=== PATIENT | female | born 1955 | race Caucasian/White ===

== ENCOUNTER 2019-12-17 08:56 | Outpatient (CLI) | payer MEDICARE, OTHER, SELFPAY ==
--- NOTE | ~2019-12-17 | MM_ITS ---
EXAMINATION: MM screening miles BI w cirilo HISTORY: Screening TECHNIQUE: Craniocaudal and mediolateral oblique 3-D tomosynthesis images were obtained and synthetic 2-D images were generated. CAD analysis was submitted and interpreted. COMPARISON: Comparison to multiple prior studies sequentially, with oldest reviewed study dated 11/22. BREAST PARENCHYMAL COMPOSITION: There are scattered areas of fibroglandular density. FINDINGS: There is no evidence of suspicious mass, calcification, or architectural distortion to sugg est malignancy in either breast. There has been no suspicious interval change. IMPRESSION: 1. No mammographic evidence of malignancy. 2. Recommend routine screening mammography in one year. BI-RADS Category 1: Negative Reviewed, dictated and finalized at location A.
== END 2019-12-17 08:57 | disposition home or self-care (01) ==
LOC: ANHIMG 09:07
PROVIDERS: Visit Provider Obstetrics & Gynecology Gynecology
DX: Z12.31 Encounter for screening mammogram for malignant neoplasm of breast (principal)
CPT/HCPCS: 77063; 77067

== ENCOUNTER 2020-12-22 08:32 | Outpatient (CLI) | payer MEDICARE, SELFPAY ==
--- NOTE | ~2020-12-22 | MM_ITS ---
EXAMINATION: MM screening miles BI w cirilo HISTORY: Screening TECHNIQUE: Craniocaudal and mediolateral oblique 3-D tomosynthesis images were obtained and synthetic 2-D images were generated. CAD analysis was submitted and interpreted. COMPARISON: Comparison to multiple prior studies sequentially, with oldest reviewed study dated 11/24. BREAST PARENCHYMAL COMPOSITION: There are scattered areas of fibroglandular density. FINDINGS: There is no evidence of suspicious mass, calcification, or architectural distortion to sugg est malignancy in either breast. There has been no suspicious interval change. IMPRESSION: 1. No mammographic evidence of malignancy. 2. Recommend routine screening mammography in one year. BI-RADS Category 1: Negative Reviewed, dictated and finalized at location A.
== END 2020-12-22 08:33 | disposition home or self-care (01) ==
LOC: ANHIMG 08:40
PROVIDERS: Visit Provider Obstetrics & Gynecology Gynecology
DX: Z12.31 Encounter for screening mammogram for malignant neoplasm of breast (principal)
CPT/HCPCS: 77063; 77067

== ENCOUNTER 2021-12-28 09:30 | Outpatient (CLI) | payer MEDICARE, SELFPAY ==
--- NOTE | ~2021-12-28 | MM_ITS ---
EXAMINATION: MM screening [facility] BI w cirilo HISTORY: Screening mammogram TECHNIQUE: Craniocaudal and mediolateral oblique 3-D tomosynthesis images were obtained and synthetic 2-D images were generated. CAD analysis was submitted and interpreted. COMPARISON: 12/22/2020, 12/17/2019, 12/11/2018 BREAST PARENCHYMAL COMPOSITION: There are scattered areas of fibroglandular density. FINDINGS: There is no suspicious mass, calcification, or architectural distortion to suggest malignan cy in either breast. There has been no suspicious interval change. IMPRESSION: 1. No mammographic evidence of malignancy. 2. Recommend routine screening mammography in one year. BI-RADS Category 1: Negative Reviewed, dictated and finalized at location A.
== END 2021-12-28 09:31 | disposition home or self-care (01) ==
PROVIDERS: Visit Provider Obstetrics & Gynecology Gynecology
DX: Z12.31 Encounter for screening mammogram for malignant neoplasm of breast (principal)
CPT/HCPCS: 77063; 77067

== ENCOUNTER 2023-01-03 09:43 | Outpatient (CLI) | payer MEDICARE, SELFPAY ==
--- NOTE | ~2023-01-03 | MM_ITS ---
EXAMINATION: MM screening miles BI w cirilo HISTORY: Screening mammogram TECHNIQUE: Craniocaudal and mediolateral oblique 3-D tomosynthesis images were obtained and synthetic 2-D images were generated. CAD analysis was submitted and interpreted. COMPARISON: 12/28/2021, 12/22/2020, 12/17/2019 bilateral screening mammogram examinations BREAST PARENCHYMAL COMPOSITION: The breasts are almost entirely fatty. FINDINGS: There is no evidence of suspicious mass, calcification, or architectural distortion to sugg est malignancy in either breast. There has been no suspicious interval change. IMPRESSION: 1. No mammographic evidence of malignancy. 2. Recommend routine screening mammography in one year. BI-RADS Category 1: Negative Reviewed, dictated and finalized at location A.
== END 2023-01-03 09:44 | disposition home or self-care (01) ==
PROVIDERS: Visit Provider Obstetrics & Gynecology Gynecology
DX: Z12.31 Encounter for screening mammogram for malignant neoplasm of breast (principal)
CPT/HCPCS: 77063; 77067

== ENCOUNTER 2024-01-09 09:53 | Outpatient (CLI) | payer MEDICARE, SELFPAY ==
--- NOTE | ~2024-01-09 | MM_ITS ---
EXAMINATION: MM screening miles BI w cirilo HISTORY: Screening TECHNIQUE: Craniocaudal and mediolateral oblique 3-D tomosynthesis images were obtained and synthetic 2-D images were generated. CAD analysis was submitted and interpreted. COMPARISON: Comparison to multiple prior studies sequentially, with oldest reviewed study dated 12/07. BREAST PARENCHYMAL COMPOSITION: Not Dense. The breasts are almost entirely fatty. FINDINGS: There is no evidence of suspicious mass, calcification, or architectural distortion to sugg est malignancy in either breast. There has been no suspicious interval change. IMPRESSION: 1. No mammographic evidence of malignancy. 2. Recommend routine screening mammography in one year. BI-RADS Category 1: Negative Reviewed, dictated and finalized at location B.
== END 2024-01-09 09:54 | disposition home or self-care (01) ==
LOC: ANHIMG 09:54
PROVIDERS: PCP Family Medicine; Visit Provider Obstetrics & Gynecology Gynecology
DX: Z12.31 Encounter for screening mammogram for malignant neoplasm of breast (principal)
CPT/HCPCS: 77063; 77067

== ENCOUNTER 2024-01-23 01:27 | Day surgery (SDC) | payer MEDICARE, SELFPAY ==
[2024-01-04 11:49] VITALS: BMI 31.2
--- NOTE | 2024-01-22 17:00 | WPDANESEPP ---
Anes - Eval Pre Procedure Procedure: Operation Date: 01/23/24 07:30 Proposed Procedures p Screening Colonoscopy - Juanjo Jarquin MD Date/Time: 01/22/24 17:00 Pre Op Diagnosis: neoplasm screening Patient Data Age: 68 Gender: F Height: 1.55 m Weight: 75 kg Allergies Allergy/AdvReac Type Severity Reaction Status Date / Time Sulfa (Sulfonamide Allergy Severe RASH Verified 01/04/24 11:28 Antibiotics) Home Medications Medication Instructions Recorded Confirmed Type [place] Shield .Route 11/21/23 History biotin 5,000 mcg chewable tablet 5,000 mcg PO DAILY 11/21/23 01/04/24 History calcium carbonate (Calcium 500) 1,200 mg PO DAILY 11/21/23 01/04/24 History cholecalciferol (vitamin D3) 1,250 1,250 mcg PO ONCE 11/21/23 01/04/24 History mcg (50,000 unit) capsule estradiol 10 mcg vaginal tablet 10 mcg vaginal 2XW 11/21/23 01/04/24 History ezetimibe 10 mg tablet 10 mg PO DAILY 11/21/23 History levothyroxine 50 mcg tablet 50 mcg PO DAILY 11/21/23 01/04/24 History cyclobenzaprine 5 mg tablet 5 mg PO PRN 11/22/23 01/04/24 History Patient hx anesthesia problems: none Family hx anesthesia problems: none Results Review: All pre-operative results and documents have been reviewed as part of the pre-operative evaluation. [facility] Past Medical History Medical History (Updated 01/22/24 @ 17:01 by Michele Gutierrez Jr., CRNA) Hearing loss Hypothyroidism Osteopenia Overweight (BMI 25.0-29.9) Sleep apnea Surgical History Surgical History History of knee replacement Family History Family History Father Hypertension Cerebrovascular accident Sibling Hypertension Social History Social History Smoking status: Never smoker Second hand tobacco smoke exposure: Yes Alcohol intake: current Drinks per week: 1 Substance use: never Substance use type: does not use Living arrangements: with family Occupation/Education: retired Gender identity (if verbalized by the patient): Female Sexual Orientation (if Verbalized by the Patient): Straight or Heterosexual Spiritual care concerns: No Exam Day of Procedure 01/22/24 17:00 Patient weight: overweight
[2024-01-23 06:21] VITALS: BP 141/81; PULSE 61; RESP 20; TEMP 35.8; O2SAT 99; BMI 23.8
[2024-01-23] MEDS: LACTATED RINGERS 1,000 ML 150 ML IV CONT (06:41)
--- NOTE | 2024-01-23 06:52 | P.PNAN_ITS ---
Anes - Initial Pre Proc Eval Procedure: Operation Date: 01/23/24 07:30 Proposed Procedures p Screening Colonoscopy - Juanjo Jarquin MD Date/Time: 01/23/24 06:52 Surgeon: Juanjo Jarquin MD Pre Op Diagnosis: neoplasm screening Patient Data Age: 68 Gender: F Height: 1.8 m Weight: 77.6 kg Last Vital Signs Temp 35.8 C L 01/23/24 06:21 Pulse 61 01/23/24 06:21 Resp 20 01/23/24 06:21 BP 141/81 H 01/23/24 06:21 Pulse Ox 99 01/23/24 06:21 O2 Del Method Room Air 01/23/24 06:21 Allergies Allergy/AdvReac Type Severity Reaction Status Date / Time Sulfa (Sulfonamide Allergy Severe RASH Verified 01/23/24 06:19 Antibiotics) Home Medications Medication Instructions Recorded Confirmed Type [place] Shield 1 tab-cap PO DAILY 11/21/23 01/23/24 History biotin 5,000 mcg chewable tablet 5,000 mcg PO DAILY 11/21/23 01/23/24 History calcium carbonate (Calcium 500) 1,200 mg PO DAILY 11/21/23 01/23/24 History cholecalciferol (vitamin D3) 1,250 1,250 mcg PO ONCE 11/21/23 01/23/24 History mcg (50,000 unit) capsule estradiol 10 mcg vaginal tablet 10 mcg vaginal 2XW 11/21/23 01/23/24 History levothyroxine 50 mcg tablet 50 mcg PO DAILY 11/21/23 01/23/24 History cyclobenzaprine 5 mg tablet 5 mg PO PRN 11/22/23 01/23/24 History Patient hx anesthesia problems: none Family hx anesthesia problems: none Results Review: All pre-operative results and documents have been reviewed as part of the pre- operative evaluation. [facility] Past Medical History Medical History Hearing loss Hypothyroidism Osteopenia Overweight (BMI 25.0-29.9) Sleep apnea Surgical History Surgical History History of knee replacement Family History Family History Father Hypertension Cerebrovascular accident Sibling Hypertension Social History Social History Smoking status: Never smoker Second hand tobacco smoke exposure: Yes Alcohol intake: current Drinks per week: 1 Substance use: never Substance use type: does not use Living arrangements: with family Occupation/Education: retired Gender identity (if verbalized by the patient): Female Sexual Orientation (if Verbalized by the Patient): Straight or Heterosexual Spiritual care concerns: No Anes - Eval Final PreProcedure Day of Procedure 01/23/24 06:52 Patient weight: normal Heart: regular rate and rhythm Lungs: clear to auscultation Airway: Mallampati scale class II Neurological: alert and oriented Last oral intake: >/= 8 hours ASA classification: III Emergent: no Anesthetic plan: proceed Anesthesia type and monitoring: general GIVS and standard monitoring Results Review: All pre-operative results and documents have been reviewed as part of the pre- operative evaluation. Informed Consent: The patient's anesthetic plan and its attendant risks and benefits were discussed with the patient/family/POA. Questions were solicited and answers provided to the satisfaction of the patient/family/POA.
--- NOTE | 2024-01-23 07:20 | PM.HPGS ---
History of Present Illness History of Present Illness Consent: Risks, benefits, and alternatives have been discussed and questions answered. Patient agrees to proceed with procedure. Chief complaint: neoplasm screening Narrative: Jyoti Stapleton is a 68 year old female here for screening colonoscopy Review of Systems Review of Systems: All systems reviewed & are unremarkable except as noted in HPI and below PMFSH Past Medical History Medical History (Updated 01/23/24 @ 07:20 by Juanjo Jarquin MD) Colon cancer screening Hearing loss Hypothyroidism Osteopenia Overweight (BMI 25.0-29.9) Sleep apnea Surgical History Surgical History History of knee replacement Family History Family History Father Hypertension Cerebrovascular accident Sibling Hypertension Social History Social History Smoking status: Never smoker Second hand tobacco smoke exposure: Yes Alcohol intake: current Drinks per week: 1 Substance use: never Substance use type: does not use Living arrangements: with family Occupation/Education: retired Gender identity (if verbalized by the patient): Female Sexual Orientation (if Verbalized by the Patient): Straight or Heterosexual Spiritual care concerns: No Meds Home Medications and Allergies Home Medications Medication Instructions Recorded Confirmed Type [place] Shield 1 tab-cap PO DAILY 11/21/23 01/23/24 History biotin 5,000 mcg chewable tablet 5,000 mcg PO DAILY 11/21/23 01/23/24 History calcium carbonate (Calcium 500) 1,200 mg PO DAILY 11/21/23 01/23/24 History cholecalciferol (vitamin D3) 1,250 1,250 mcg PO ONCE 11/21/23 01/23/24 History mcg (50,000 unit) capsule estradiol 10 mcg vaginal tablet 10 mcg vaginal 2XW 11/21/23 01/23/24 History levothyroxine 50 mcg tablet 50 mcg PO DAILY 11/21/23 01/23/24 History cyclobenzaprine 5 mg tablet 5 mg PO PRN 11/22/23 01/23/24 History Allergies Allergy/AdvReac Type Severity Reaction Status Date / Time Sulfa (Sulfonamide Allergy Severe RASH Verified 01/23/24 06:19 Antibiotics) Vital Signs Vital Signs - 24 hr 01/23/24 06:21 Temperature 96.5 F L Pulse Rate 61 Respiratory Rate 20 Blood Pressure 141/81 H Pulse Oximetry 99 Oxygen Delivery Room Air Exam Const: General: comfortable and no acute distress HENMT: Face/Nose/Sinus: Normal nares present Eyes: General: appearance normal, both eyes and all related structures Neck: Neck: no JVD Resp: Auscultation: clear to auscultation bilaterally Cardio: Rate: regular rate Rhythm: regular rhythm GI: Inspection: non-distended GI Palp: Yes Soft to palpation Skin: General skin exam: normal color Neuro: General: gait normal Speech: normal speech Extrem: General: normal to inspection Psych: Mental Status: mental status grossly normal Assessment and Plan Assessment and plan (1) Colon cancer screening: Code(s): Z12.11 - Encounter for screening for malignant neoplasm of colon Status: Acute Assessment and Plan: colonoscopy
[2024-01-23 07:43] VITALS: BP 98/57; PULSE 67; RESP 18; O2SAT 98
[2024-01-23 07:53] VITALS: BP 106/60; PULSE 63; RESP 18; O2SAT 99
[2024-01-23 08:03] VITALS: BP 122/61; PULSE 60; RESP 18; O2SAT 100
== END 2024-01-23 08:16 | disposition home or self-care (01) ==
PROVIDERS: PCP Family Medicine; Referring Provider Internal Medicine; Visit Provider Internal Medicine Gastroenterology
PROC: 0DJD8ZZ Inspection of Lower Intestinal Tract, Via Natural or Artificial Opening Endoscopic (ICD-10-PCS; CPT 45378; principal; 2024-01-23 07:30)
DX: Z12.11 Encounter for screening for malignant neoplasm of colon (principal); K64.8 Other hemorrhoids; K57.30 Diverticulosis of large intestine without perforation or abscess without bleeding; E03.9 Hypothyroidism, unspecified; M85.88 Other specified disorders of bone density and structure, other site; G47.30 Sleep apnea, unspecified; Z98.890 Other specified postprocedural states; Z82.49 Family history of ischemic heart disease and other diseases of the circulatory system
CPT/HCPCS: G0121; J2003; J2704; J7120

== ENCOUNTER 2024-02-01 08:12 | Outpatient (CLI) | payer MEDICARE, SELFPAY ==
[2024-02-01 18:48] LABS: Hematocrit 44.3 % (37.0-47.0); Hemoglobin 14.1 g/dL (12.0-15.0); Mean Corpuscular HGB Conc 31.8 g/dl (32-36); Mean Corpuscular Hemoglobin 31.2 pg (26-34); Mean Platelet Volume 10.4 fl (7.4-10.4); Platelet Count Result 181 k/mm3 (150-375); Red Blood Count 4.52 M/mm3 (4.2-5.4); Red Cell Distribution Width 12.5 % (11.5-14.5); White Blood Count 7.2 K/mm3 (4.5-10.0)
[2024-02-01 19:56] LABS: Vitamin D 25 Hydroxy 36.8 ng/mL
[2024-02-01 19:58] LABS: Alanine Aminotransferase 32 U/L (6-35); Albumin Level 4.5 g/dL (3.5-5.1); Alkaline Phosphatase 83 U/L (38-126); Anion Gap 9 mmol/L (4-12); Aspartate Amino Transferase 41 U/L (14-36); Bilirubin,Total 0.3 mg/dL (0.2-1.3); Blood Urea Nitrogen 14 mg/dL (7-17); Calcium 9.4 mg/dL (8.4-10.2); Carbon Dioxide 29 mmol/L (22-30); Chloride 101 mmol/L (98-107); Cholesterol 273 mg/dL (0-200); Estimated Glomerular Filt Rate > 60; Glucose 83 mg/dL (65-110); HDL Direct 58 mg/dL; Potassium 4.5 mmol/L (3.4-5.0); Sodium 139 mmol/L (137-145); Triglycerides 133 mg/dL (<150)
[2024-02-01 20:09] LABS: LDL Cholesterol Direct 160 mg/dL
== END 2024-02-01 08:13 | disposition home or self-care (01) ==
PROVIDERS: PCP Family Medicine; Visit Provider Family Medicine
DX: E03.9 Hypothyroidism, unspecified (principal); M85.80 Other specified disorders of bone density and structure, unspecified site; E78.00 Pure hypercholesterolemia, unspecified; G47.30 Sleep apnea, unspecified
CPT/HCPCS: 36415; 80053; 80061; 82306; 84443; 85027

== ENCOUNTER 2024-09-23 07:51 | Outpatient (CLI) | payer MEDICARE, SELFPAY ==
--- OUTSIDE RECORDS SUMMARY | 2024-09-23 07:55 | XMS_ITS | Encounter Summary ---
Author Organization [facility] Address [address] [place], [place] [address] [address] Care Team Providers Care Otolaryngologist Name Role Phone Chacorta Nelson MD Primary Care Provider [phone] Encounter Details Date Type Department Care Team (Late st Contact Info) Description 07/19/2023 Lab Requisition [facility] - DermPath Lab [address] [facility], [facility] [place] [address] Adelita Russell MD [address] [facility] [address] DEPT [place] [address] Social History Tobacco Use Types Packs/Day Years Used Date Smoking Tobacco: Never Alcohol Use Standard Drinks/Week Comments No 0 (1 standard drink = 0.6 oz pur e alcohol) Comments No Sex and Gender Information Value Date Recorded Sex Assigned at Not on file 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 Gender Identity Not on file Sexual Orientation Not on file documented as of this encounter Plan of Treatment Not on file documented as of this encounter Procedures Procedure Name Priority Date/Time Associated Diagnosis Comments DERMATOPATHOLOGY Routine 07/19/2023 9:53 AM CDT documented in this encounter Results * DERMATOPATHOLOGY (07/19/2023 9:53 AM CDT) Case Report Dermatopathology Report Case: [id number] Authorizing Provider: Adelita Russell MD Collected: 07/19/2023 09:53 AM Ordering Location: [facility] - Received: 07/20/2023 09:03 AM DermPath Lab Pathologist: Liliana Jiménez MD Specimen: Skin, right crown 12:52 PM CDT DERMATOPATHOLOGY LABORATORY Final Diagnosis Specimen A. 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 The specimen consists of a shave biopsy measuring 3x3x1 mm. Jar 0. 12:52 PM CDT DERMATOPATHOLOGY LABORATORY Microscopic Description Specimen A. SKIN, right crown: Sections show areas in which atypical keratinocytes are present within the epidermis in two different patterns. In one area, atypical keratinocytes replace most of the thickness of the epidermis and there are broad rete ridges and overlying parakeratosis. In other areas, there are atypical keratinocytes in the lower epidermis with partial maturation. There is solar elastosis. 12:52 PM CDT DERMATOPATHOLOGY LABORATORY Disclaimer An external and internal positive and negative controls are appropriate for the histochemical, immunohistochemical and immunofluorescence stain(s) in this case (if any), except where stated explicitly. The performance characteristics of the stain(s) cited in this report were developed and its performance characteristic determined by the Dermatopathology Laboratory at [facility], directed by Dr. Debbie Man. These tests need not be, and therefore are not, approved by the [place] Food and Drug Administration. The tests are used for clinical purposes. Billing Codes Specimen Charges Stain Charges 21044 1 12:52 PM CDT DERMATOPATHOLOGY LABORATORY Embedded Images 12:52 PM CDT DERMATOPATHOLOGY LABORATORY Pathology/Cytolo gy TISSUE SPECIMEN FROM SKIN / Unknown 07/19/2023 9:53 AM CDT 07/20/2023 9:03 AM CDT Adelita Russell MD LAB - PATHOLOGY/CYTOLOGY OR DERABLES Final Result DERMATOPATHOLOGY LABORATORY [facility] - Department of Dermatology [facility] [address] [place] [address], [address] [phone] documented in this encounter Visit Diagnoses Not on filedocumented in this encounter Care Teams Otolaryngologist Relationship Specialty Start Date End Date Chacorta Nelson MD [address] [place] [address] PCP - General Internal Medicine 08/07/23 documented as of this encounter
--- OUTSIDE RECORDS SUMMARY | 2024-09-23 07:55 | XMS_ITS | Clinical Summary ---
Author Organization [facility] Address [address] [place] [address] Care Team Providers Care Pipefitter Welder Name Role Phone Chacorta Nelson MD Primary Care Provider [phone] Source Comments [facility],non-owned Affiliates and Associated Physician Practices is amultiple site organization consisting of ambulatory clinics and hospital sitesin [place], [place], [place] and [place]. This disclosure is being madepursuant to the Care Everywhere program and may not contain all information available regarding this patient. Last updated 17.[facility] Allergies Active Allergy Reactions Criticality Noted Date Comments Sulfa Drugs 10/13/2011 RASH Medications * Be aware that medications may not be up to date on this document. Alwaysverify current medications with the patient. milnacipran (SAVELLA) 50 MG tablet Take 50 mg by mouth 2 times daily. Active vitamin D, ergocalciferol, (DRISDOL) 38144 UNITS capsule Take 50,000 Units by mouth. EVERY 10 DAYS Active amitriptyline (ELAVIL) 10 MG tablet Take 10 mg by mouth at bedtime. Active estradiol (ESTRING) 2 MG ring Insert 1 Device into the vagina once. Active alendronate (FOSAMAX) 70 MG tablet Take 70 mg by mouth every 7 days before meal. Take in morning with full glass of water on empty stomach and remain upright for 30 min Active calcium carbonate 650 MG tablet Take 650 mg by mouth once daily. Active oxycodone-aceta minophen (PERCOCET) 5-325 MG tablet Take 1-2 Tabs by mouth every 6 hours as needed for Pain. PREET: [id number] 30 Tab 0 10/19/2011 Active aluminum sulfate/calcium acetate (DOMEBORO) packet Apply 1 Packet to affected area once daily. 14 Packet 0 10/19/2011 Active docusate sodium (COLACE) 100 MG capsule Take 1 Cap by mouth once daily. 30 Cap 1 10/19/2011 Active ezetimibe (Zetia) 10 MG tablet Take 1 (one) tablet by mouth once daily 11/11/2022 Active levothyroxine (Synthroid) 50 MCG tablet TAKE 1 TABLET BY MOUTH INTHE MORNING DAILY 06/27/2023 Active cycloSPORINE (Restasis) 0.05 % ophthalmic suspension INSTILL 1 DROP INTO EACH EYE TWICE DAILY 07/31/2023 Active Active Problems Problem Noted Date Diagnosed Date Benign paroxysmal positional vertigo of left ear 01/14/2020 08/03/2023 Overview (08/03/2023): Last Assessment & Plan: Left Benign Positional Vertigo treated with Zac Maneuver Consider VNG in the future Post-Zac instructions discussed and Handout provided Acquired hypothyroidism 12/02/2016 08/03/19 24 Medication management 12/02/2016 08/03/2023 Primary osteoarthritis of right knee 11/09/2016 08/03/2023 Disorder of bone and cartilage 08/24/2013 0 08/03/2023 Overview (08/03/2023): BONE & CARTILAGE DIS NOS Atopic rhinitis 07/18/2013 08/03/2023 Overview (08/03/2023): Chronic allergic rhinitis Insomnia 07/18/2013 08/03/2023 Overview (08/03/2023): Insomnia Obstructive sleep apnea syndrome 07/18/2013 08/03/2023 Overview (08/03/2023): KATHERINE on CPAP Sialoadenitis 01/26/2010 08/03/2023 Vulvar vestibulitis 04/30/2009 08/03/2023 Family History Medical History Relation Name Comments Diabetes Brother Heart Disease Father Stroke Father Cancer Maternal Grandmother Osteoporosis Mother Cancer Paternal Grandfather Relation Name Status Comments Brother Father Maternal Grandmother Mother Paternal Grandfather Social History Tobacco Use Types Packs/Day Years Used Date Smoking Tobacco: Never Alcohol Use Standard Drinks/Week Comments No 0 (1 standard drink = 0.6 oz pur e alcohol) Comments No Sex and Gender Information Value Date Recorded Sex Assigned at Not on file Legal 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 Gender Identity Not on file Sexual Orientation Not on file Last Filed Vital Signs Vital Sign Reading Time Taken Comments Blood Pressure 128/80 10/19/2011 11:29 AM CDT Pulse 69 10/19/2011 11:29 AM CDT Temperature 36.3 C (97.3 F) 10/19/2011 10:32 AM CDT Respiratory Rate 1 10/19/2011 11:29 AM CDT Oxygen Saturation 97% 10/19/2011 11:29 AM CDT Inhaled Oxygen Concentration - - Weight 69.9 kg (154 lb) 10/19/2011 7:22 AM CDT Height 154.9 cm (5' 1) 10/19/2011 7:22 AM CDT Body Mass Index 29.1 10/19/2011 7:22 AM CDT Plan of Treatment Health Maintenance Due Date Last Done Comments COLOGUARD (AGES 45-75) - COLON CA SCREENING 1954 COLON MONITORING 1954 COLONOSCOPY - COLON CA SCREENING 1954 CT COLONOGRAPHY - COLON CA SCREENING 1954 Colorectal Cancer Screening 1954 FIT - COLON CA SCREENING 1954 FLEX SIG - COLON CA SCREENING 1954 MAMMOGRAM 1954 HEPATITIS C SCREENING 05/16/1972 DTAP/TDAP/TD VACCINES (1 - Tdap) 1973 PNEUMOCOCCAL VACCINE 50+ (1 of 1 - PCV) 2004 ZOSTER VACCINE (1 of 2) 2004 COVID-19 VACCINE (1 - 2023- season) 2023 DEPRESSION SCREENING 04/10/2024 MEDICARE AWV CALENDAR YEAR 2024 INFLUENZA VACCINE (Season Ended) 2024 12/15/2018, 01/08/2018, 01/18/2017, Additional history exists LIPID TESTING 08/16/2028 08/17/2023 Respiratory Syncytial Virus (RSV) Vaccine Pt: or over 60 yrs (1 - 1-dose 75+ series) 2029 BONE DENSITY TESTING Completed 10/31/2016 HEPATITIS B VACCINE Aged Out No longe r eligible based on patient's age to complete this topic HIB VACCINE Aged Out No longer eligi ble based on patient's age to complete this topic HPV VACCINE Aged Out No longer eligi ble based on patient's age to complete this topic MENINGOCOCCAL (Group B) VACCINE SHARED DECISION-MAKING Aged Out No longer eligible based on patient's age to complete this topic MENINGOCOCCAL GROUPS A/C/Y/W VACCINE Aged Out No longer eligible based on patient's age to complete this topic Insurance AETNA MEDICARE [facility]V [facility] Care Address: [facility] [id number] [place] [phone] Advance Directives Documents on File Type Date Recorded Patient Manager Safe Expl anation Adv Directive/Living Will/POA 10/22/2011 9:13 AM * FULL RESUSCITATION (Latest Code Status on File) Date Activated Date Inactivated Comments 10/19/2011 6:55 AM 10/19/2011 1:08 PM Care Teams Pipefitter Welder Relationship Specialty Start Date End Date Chacorta Neslon MD [address] [place] [address] PCP - General Internal Medicine 08/07/23
--- OUTSIDE RECORDS SUMMARY | 2024-09-23 07:55 | XMS_ITS | Continuity of Care Document ---
Author Organization [facility] Address [id number] [place] [address] [address] [place] [address] Phone Care Team Providers Care Grocery Store Courtesy Clerk Name Role Phone Randy Owen OD Unavailable Unavailable Advance Directives Directive Yes / No Effective Date File Name No Information Encounters Encounter Description Practice Location Reason(s) For Visit Diagnoses Date Provider Providers Copied on Encounter [facility], [address] [place] [address] [address], [place], [place], [id number], tel:[phone] [facility] No Information 5 Brayden Padilla. [address] [place] [address], [address], [place], [place], [id number], [place]. tel:[phone] Referring Provider: Randy Owen, [address] [place] [address] [address], [place], [address]. tel:[phone] Family History Family Member Type Diagnosis Age At Onset No Information Payers Payer name Insurance type Covered green party ID Authoriza tion(s) No Information Social History Type Description Quantity Date Captured Comments Sex Female Smoking Status No Information Chief Complaint And Reason For Visit No Information Reason For Referral Reason For Referral No Information Plan Of Treatment Date Type Action Status Appointment Jyoti Stapleton BOOKED History Of Present Illness Encounter Date Complaint History Of Prese nt Illness No Information Functional Status Date Functional Assessmen t No Information Instructions Date Instruction Additional Infor mation No Information Assessments Type Assessment Date No Information Patient Care Teams Name Effective Dates (start - stop) Status Members No Information
--- OUTSIDE RECORDS SUMMARY | 2024-09-23 07:55 | XMS_ITS | Continuity of Care Document ---
Author Organization [facility] Address [address] [facility] [facility] [address] [place] [address] Phone Care Team Providers Care Truck Spotter Name Role Phone Josué BAKER, Octavio Unavailable [...] D 50,000 unit Cap take 1 capsule ([id number]) by ORAL route every week - Active [...] Diagnoses Date Provider Providers Copied on Encounter [facility], [address] [place] [address] [address], [place], [place], [id number], tel:[phone] SEC Romance TC Professional TEAR FILM INSUFFIC NOS Sep-0 4-201 2 Wankum Octavio. [address], [facility] [place], [place], [id number], [place]. tel:[phone] [facility], [address] [place] [address] [address], [place], [place], [id number], tel:[phone] [place] Professional No Information Aug-2 3-201 2 Wankum Octavio. [address], [facility] [place], [place], [id number], [place]. tel:[phone] [facility], [address] [place] [address] [address], [place], [place], [address], [place] tel:[phone] SEC Rom[place] Professional No Information Aug-1 3-201 0 Wankum Octavio. [address], [facility] [place], [id number], [place]. tel:[phone] [facility], [address] [place] [address] [address], [place], [place], [address], [place] tel:[phone] [address] [place] Professional No Information Aug-0 7-200 8 Wankum Octavio. [address], [facility] [place], [address], [place]. tel:[phone] Referring Provider: Octavio Brennan, [address] [place], [address] . tel:[phone] Family History Family Member Type Diagnosis Age At Onset No Information Payers Payer name Insurance type Covered libertarian ID Authoriza tion(s) No Information Social History [...]
--- OUTSIDE RECORDS SUMMARY | 2024-09-23 07:55 | XMS_ITS | Clinical Summary ---
Author Organization [facility] Address [address] [place] [address] Care Team Providers Care Student Accounts Manager Name Role Phone DameonKassandra riosJackie PA Unavailable Abdirahman Saucedo MD Primary Care Provider [phone] Allergies Active Allergy Reactions Criticality Noted Date Comments Sulfa (Sulfonamide Antibiotics) Hives Medium Sulfasalazine Unknown,Hives,Rash Medium 12/25/2008 RASH Medications triamcinolone (NASACORT AQ) 55 mcg nasal inhaler spray 1 spray by intranasal route every day in each nostril 1 spray 3 3 Active levothyroxine (SYNTHROID) 50 mcg tablet take 1 tablet by oral route every day in the morning 90 3 7 Active calcium carbonate (OS-ALLI) 650 mg calcium (1,625 mg) tablet Take 650 mg by mouth. Active RESTASIS 0.05 % ophthalmic emulsion 7 Active ergocalciferol (VITAMIN D) 50,000 unit capsule Take by mouth Twice a month Active ezetimibe (ZETIA) 10 mg tablet Take 1 tablet (10 mg total) by mouth daily 3 Active estradioL (VAGIFEM) 10 mcg tablet Insert 1 tablet (10 mcg total) into the vagina 2 (two) times a week 3 Active biotin 5 mg capsule 1 capsule (1 tablet total) daily 5000 mcg Active UNABLE TO FIND every evening Med Name: [facility] Lubricant Active xbocmenq-mqm-QI -lut-zeaxanth 500-5-1 mcg-mg-mg tablet Take by mouth Active UNABLE TO FIND 4 (four) times a day Med Name: Macular Shield Active UNABLE TO FIND daily Med Name: Media Shield Active ascorbic acid (VITAMIN C) 500 mg tablet,chewable Take 1 tablet/chew tab (500 mg total) by mouth 2 (two) times a day 60 tablet/chew tab 4 Active cholecalciferol (Vitamin D3) 2000 unit tablet Take 1 tablet (2,000 Units total) by mouth daily 30 tablet 4 Active aspirin 81 mg chewable tablet Take 1 tablet (81 mg total) by mouth 2 (two) times a day 60 tablet 4 Active cyclobenzaprine (FLEXERIL) 5 mg tablet Take 1-2 tablets (5-10 mg total) by mouth 3 (three) times a day as needed for muscle spasms 30 tablet 1 4 Active clindamycin (CLEOCIN) 300 mg capsule Take 2 capsules (600 mg total) by mouth daily 4 capsule 5 Active Active Problems Problem Noted Date Diagnosed Date S/P total knee arthroplasty, left 10/11/2023 Primary osteoarthritis of left knee 09/22/2023 Benign paroxysmal positional vertigo of left ear 01/14/2020 Assessment & Plan (01/14/2020 2:58 PM CDT): Left Benign Positional Vertigo treated with Zac Maneuver Consider VNG in the future Post-Zac instructions discussed and Handout provided Healthcare maintenance 12/02/2016 Medication management 12/02/2016 BMI 30.0-30.9,adult 12/02/2016 Acquired hypothyroidism 12/02/2016 Primary osteoarthritis of right knee 11/09/2016 Disorder of bone and cartilage 08/24/2013 Overview (07/15/2016): BONE & CARTILAGE DIS NOS Obstructive sleep apnea syndrome 07/18/2013 Overview (07/13/2016): KATHERINE on CPAP Insomnia 07/18/2013 Overview (07/13/2016): Insomnia Atopic rhinitis 07/18/2013 Overview (07/15/2016): Chronic allergic rhinitis Sialoadenitis 01/26/2010 Encounters Date Type Department Care Team Description 09/20/2024 Telephone [facility] [address] [place] [address] Sobia Loomis MA 06/24/2024 Telephone [facility] [address] [place] [address] Radha Garcia MA from Last 3 Months Immunizations Immunization Administration Dates Next Due Influenza, Quadrivalent, Spl it, Preservative Free, Intradermal 01/11/2016,02/05/2015 Influenza, Quadrivalent, Spl it, Preservative Free, Intramuscular 01/08/2018,01/18/2017 Influenza, Split 02/27/2013,01/17/2012 Influenza, Trivalent, High D ose, Split, Preservative Free, Intramuscular 12/15/2018 Influenza, Trivalent, IM (MDV) 02/01/2009 Influenza, Trivalent, Recomb inant, Egg Free, Preservative Free, Antibiotic Free, IM (FLUBLOK) 01/21/2014 TD Preservative Free 08/05/2014 Tdap 01/24/2006 ZOSTER LIVE 08/05/2014 Surgical History Surgery Date Site/Laterality Comments OTHER SURGICAL HISTORY 1990 RECTAL FISSURE REPAIR OTHER SURGICAL HISTORY KATHERINE: CPAP DILATION AND CURETTAGE OF UTERUS POLYPECTOMY uterine polyp removed MENISCUS SURGERY Right REPLACEMENT TOTAL KNEE 10/11/2023 Left COLONOSCOPY 01/23/2024 Medical History Medical History Date Comments 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 Hx Other Medical 2007 Vitamin D defic iency Hx Other Medical Osteopenia Hx Other Medical KATHERINE Hx Other Medical 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 Hx Other Medical 10/19/2011 Montessori Paraprofessional vestibulect traci Hx Other Medical 08/20/2012 D&C Medication monitoring encounter Sleep apnea Hypothyroidism HLD (hyperlipidemia) Family History Medical History Relation Name Comments Heart failure Father Congestive hea rt failure; Cause of : Congestive heart failure Other Father Pulmonary hyper tension; Cause of : Pulmonary hypertension Osteoarthritis Mother Osteoarthriti s; Other Mother PMO; Rheum arthritis Mother Rheumatoid a rthritis; Other Other 1 No family histo ry of Cancer; Other Other 2 No family histo ry of Diabetes mellitus; Other Other 3 No family histo ry of Hypertension; Relation Name Status Comments Father Mother Other 1 Other 2 Other 3 Social History Tobacco Use Types Packs/Day Years Used Date Smoking Tobacco: Never Smokeless Tobacco: Never Tobacco Cessation:Counseling Given: Not Answered Alcohol Use Standard Drinks/Week Comments No 0 (1 standard drink = 0.6 oz pur e alcohol) AUDIT-C Answer Date Recorded Q1: How often do you have a drink containing alc ohol? 2-4 times a month 10/11/2023 Q2: How many drinks containi ng alcohol do you have on a typical day when you are drinking? 1 or 2 10/11/2023 Q3: How often do you have si x or more drinks on one occasion? Never 10/11/2023 Personal Safety Answer Date Recorded Have you ever been in or are you currently in a harmful physical or emotional relationship or is someone making you feel afraid or unsafe? 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 Gender Identity Not on file Sexual Orientation Not on file Obstetrics History Last Filed Vital Signs Vital Sign Reading Time Taken Comments Blood Pressure 129/79 01/25/2024 11:01 AM CDT Pulse 58 01/25/2024 11:01 AM CDT Temperature 37.2 C (99 F) 10/12/2023 7:19 AM CDT Respiratory Rate 16 10/12/2023 7:19 AM CDT Oxygen Saturation 97% 01/25/2024 11:01 AM CDT Inhaled Oxygen Concentration - - Weight 78 kg (172 lb) 01/25/2024 11:01 AM CDT Height 165.1 cm (5' 5) 01/25/2024 11:01 AM CDT Body Mass Index 28.62 01/25/2024 11:01 AM CDT Plan of Treatment Health Maintenance Due Date Last Done Comments Hepatitis B Screening 1972 Pneumococcal vaccine 65+ (1 of 1 - PCV) 2004 Depression Screening 12/02/2017 12/02/2016 Breast Cancer Screening-Mammogram 12/05/2017 017, 12/02/2015 Osteoporosis Screening-Bone Density Scan 10/31/2018 10/31/2016, 10/30/2014 Well Visit 65+ 2019 Zoster Vaccine (3 of 3) 01/08/2021 11/13/2020, 08/05 DTaP/Tdap/Td Vaccine (3 - Td or Tdap) 08/05/2024 08/05/2014, 01/24/2006 Fall Risk Assessment 10/11/2024 10/12/2023, 09/22/19 Colon Cancer Screening-Colonoscopy 10/29/2024 10/29/2014, 10/29/2014, 10/29/2014 Influenza Vaccine (Season Ended) 2024 12/15/2018, 01/08/2018, 01/18/2017, Additional history exists Colon Cancer Screening-CT Colonography Discontinued 10/29/2014, 10/29/2014, 10/29/2014 Colon Cancer Screening-DNA Stool Discontinued 10/29/2014, 10/29/2014, 10/29/2014 Colon Cancer Screening-FIT Discontinued 10/29, 10/29/2014, 10/29/2014 Colon Cancer Screening-Sigmoidoscopy Discontinued 10/29/2014, 10/29/2014, 10/29/2014 Hepatitis C Screening Completed 07/28/2016 Medical Devices Implanted Type Area Soft Work Wrapper Examiner Device Identifier Shelf Expiration Date Model / Serial / Lot [employer] Attune Fb Tib Base Sz 3 Por [id number] - [id number] Implanted:Qty: 1 on 10/11/2023 by Kevon Osorio MD at [facility] Left: Knee [employer] 09/07/2032 [id number] / / [employer] Attune Cruciate Retain Cementless Knee Left 4 Component Femoral [id number] - [id number] Implanted:Qty: 1 on 10/11/2023 by Kevon Osorio MD at [facility] Left: Knee [employer] 10/07/2032 [id number] / / [employer] Insert Tibial Knee Fixed Lm Posterior Stabilized Attune 7mm Size 4 Polyethylene [id number] - [id number] Implanted:Qty: 1 on 10/11/2023 by Kevon Osorio MD at [facility] Left: Knee [employer] 04/09/2030 [id number] / / Procedures Procedure Name Priority Date/Time Associated Diagnosis Comments HM MAMMOGRAPHY Routine 12/05/2016 DEXA AXIAL SKELETON BONE DENSITY 1 OR MORE SITES Schedule Routine, Read Routine (OP Routine) 10/31/2016 9:21 AM CDT Osteopenia HEPATITIS C SCREENING Routine 07/28/2016 COLONOSCOPY IMAGES 10/29/2014 from Last 3 Months or Most Recently Relevant to Health Maintenance Results * MAMMOGRAPHY (12/05/2016) Mammogram Unknown Historical Provider HEALTH MAINTENANCE Final Result * Dexa Axial Skeleton Bone Density 1 or 2 Site (10/31/2016 9:21 AM CDT) [facility] SCRIBED DXA T-SCORE -1.7 IMAGING SCRIBED DXA Z-SCORE -0.6 IMAGING SCRIBED DXA BMD 0.973 IMAGING Anatomical Region Laterality Modality Body N/A Digital Radiogra phy Chacorta Nelson MD IMG DXA PROCEDURES Edite d Result - Final * HEPATITIS C SCREENING (07/28/2016) [facility] HEP C Normal Comment:Negative Historical Provider HEALTH MAINTENANCE Final Result * COLONOSCOPY IMAGES (10/29/2014) Anatomical Region Laterality Modality Other Narrative 10/29/2014 Ordered by an unspecified provider. Historical Provider GI PROCEDURE ORDERABLES F inal Result from Last 3 Months or Most Recently Relevant to Health Maintenance Insurance AETNA [facility]IC[facility] Address: [address] [address] [place] [address] UHC MEDICARE ADVANTAGE AETNA MEDICARE Advance Directives For more information, please contact: [phone] Documents on File Type Date Recorded Patient Lmft Expl anation Power of Assistant Professor Of Economics 10/11/2023 8:19 AM * Full Code (Latest Code Status on File) Date Activated Date Inactivated Comments 10/11/2023 12:46 PM 10/12/2023 5:08 PM Care Teams Student Accounts Manager Relationship Specialty Start Date End Date Abdirahman Saucedo MD [address] [place] [address] [address] [place] [address] PCP - General Family Practice 01/25/24 Kassandra Xiao PA [address] [place] [address] Physician Resource Manager Orthopedic Surgery 10/12/23
--- OUTSIDE RECORDS SUMMARY | 2024-09-23 07:55 | XMS_ITS | Referral Summary ---
Author Organization [facility] Address [address] [place] [address] Care Team Providers Care Ortho Rn Name Role Phone Kassandra Xiao Unavailable [phone] Abdirahman Saucedo MD Primary Care Provider [phone] Encounters Date Type Department Care Team Description 09/20/2024 Telephone [facility] [address] [place] [address] Sobia Loomis MA 06/24/2024 Telephone [facility] [address] [place] [address] Radha Garcia MA from Last 3 Months Allergies Active Allergy Reactions Criticality Noted Date [...] UNABLE TO FIND every evening Med Name: [facility] Eye Lubricant Active plcnupid-mxd-YK -lut-zeaxanth 500-5-1 mcg-mg-mg tablet Take by mouth Active UNABLE TO FIND 4 (four) times a day Med Name: Macular Shield Active UNABLE TO FIND daily Med Name: [place] Shield Active ascorbic acid (VITAMIN C) 500 [...] Overview (07/15/2016): Chronic allergic rhinitis Sialoadenitis 01/26/2010 Immunizations Immunization Administration Dates Next Due Influenza, Quadrivalent, Spl it, Preservative Free, Intradermal 01/11/2016,02/05/2015 Influenza, Quadrivalent, Spl it, Preservative Free, Intramuscular 01/08/2018,01/18/2017 Influenza, Split 02/27/2013,01/17/2012 Influenza, Trivalent, High D ose, Split, Preservative Free, Intramuscular 12/15/2018 Influenza, Trivalent, IM (MDV) 02/01/2009 Influenza, Trivalent, Recomb inant, Egg Free, Preservative Free, Antibiotic Free, IM (FLUBLOK) 01/21/2014 TD Preservative Free 08/05/2014 Tdap 01/24/2006 ZOSTER LIVE 08/05/2014 Social History Tobacco Use Types Packs/Day Years [...] on file 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 Gender Identity Not on file Sexual Orientation [...] 01/25/2024 11:01 AM CDT Plan of Treatment Not on file Medical Devices Implanted Type Area Kaiako [place] [place] Device Identifier Shelf Expiration Date Model / Serial / Lot Depuy Orthopaedics Inc Attune Fb Tib Base Sz 3 Por [id number] - [id number] Implanted:Qty: 1 on 10/11/2023 by Kevon Osorio MD at [facility] Left: Knee Depuy [employer] Inc 09/07/2032 [id number] / / Depuy [employer] Attune Cruciate Retain Cementless Knee Left 4 Component Femoral [id number] - [id number] Implanted:Qty: 1 on 10/11/2023 by Kevon Osorio MD at [facility] Left: Knee Depuy [employer]opa[employer] Inc 10/07/2032 [id number] / / Depuy [employer] Insert Tibial Knee Fixed Lm Posterior Stabilized Attune 7mm Size 4 Polyethylene [id number] - [id number] Implanted:Qty: 1 on 10/11/2023 by Kevon Osorio MD at [facility] Left: Knee Depuy [employer] Inc 04/09/2030 [id number] / / Procedures Procedure Name Priority Date/Time Associated Diagnosis Comments MAMMOGRAPHY Routine 12/05/2016 DEXA AXIAL SKELETON BONE DENSITY 1 OR MORE SITES Schedule Routine, Read Routine (OP Routine) 10/31/2016 9:21 AM CDT Osteopenia HEPATITIS C SCREENING Routine 07/28/2016 COLONOSCOPY IMAGES 10/29/2014 from Last 3 Months or Most Recently Relevant to Health Maintenance Results * MAMMOGRAPHY (12/05/2016) [facility] Mammogram Unknown [facility] Provider HEALTH MAINTENANCE Final Result * Dexa Axial Skeleton Bone Density 1 or 2 Site (10/31/2016 9:21 AM CDT) [facility] SCRIBED DXA T-SCORE -1.7 IMAGING SCRIBED DXA Z-SCORE -0.6 IMAGING SCRIBED DXA BMD 0.973 IMAGING Anatomical Region Laterality Modality Body N/A Digital Radiogra phy Chacorta Nelson MD IMG DXA PROCEDURES Edite d Result - Final * HEPATITIS C SCREENING (07/28/2016) [facility] HEP C Normal Comment:Negative Historical Provider HEALTH MAINTENANCE Final Result * COLONOSCOPY IMAGES (10/29/2014) Anatomical Region Laterality Modality Other Narrative 10/29/2014 Ordered by an unspecified provider. Result [facility] Provider GI PROCEDURE ORDERABLES F inal Result from Last 3 Months or Most Recently Relevant to Health Maintenance Insurance T MEDICARE [employer] [facility] MEDICARE [facility] Address: [address] [address] [place] [address] [facility] MEDICARE ADVANTAGE [facility] MEDIC[facility] Address: [address] [address] [place] [address] [employer] MEDICARE Advance Directives For more information, please contact: [phone] Documents on File Type Date Recorded Patient Bill Cutter Expl anation Power of Qa Test Analyst 10/11/2023 8:19 AM * Full Code (Latest Code Status on File) Date Activated Date Inactivated Comments 10/11/2023 12:46 PM 10/12/2023 5:08 PM Care Teams Ortho Rn Relationship Specialty Start Date End Date Abdirahman Saucedo MD [address] [place] [address] [address] [place] [address] PCP - General Family Practice 01/25/24 Kassandra Xiao PA [address] [place] [address] [address] [place] [address] Physician Video Machines Mechanic Orthopedic Surgery 10/12/23
[2024-09-23 20:12] LABS: Basophils Percent Auto 0.5 % (0.2-1.2); Eosinophils Absolute Auto 0.1 K/mm3 (0-0.3); Eosinophils Percent Auto 1.5 % (0-4.4); Hematocrit 45.4 % (37.0-47.0); Hemoglobin 14.3 g/dL (12.0-15.0); Immature Granulocyte Absolute 0.02 K/mm3 (0.00-0.031); Immature Granulocyte Percent A 0.3 % (0-0.5); Lymphocytes Absolute Auto 1.21 K/mm3 (0.9-3.2); Lymphocytes Percent Auto 16.1 % (18.3-44.2); Mean Corpuscular HGB Conc 31.5 g/dl (32-36); Mean Corpuscular Hemoglobin 30.7 pg (26-34); Mean Corpuscular Volume 97.4 fl (80-100); Mean Platelet Volume 10.3 fl (7.4-10.4); Monocytes Absolute Auto 0.6 K/mm3 (0.1-0.6); Monocytes Percent Auto 8.1 % (2.6-8.5); Neutrophils Absolute Auto 5.5 K/mm3 (1.3-6.7); Neutrophils Percent Auto 73.5 % (45.5-73.1); Platelet Count Result 176 k/mm3 (150-375); Red Blood Count 4.66 M/mm3 (4.2-5.4); Red Cell Distribution Width 13.1 % (11.5-14.5); White Blood Count 7.5 K/mm3 (4.5-10.0)
[2024-09-23 20:29] LABS: Alanine Aminotransferase 17 U/L (6-35); Albumin Level 4.4 g/dL (3.5-5.1); Alkaline Phosphatase 68 U/L (38-126); Anion Gap 5 mmol/L (4-12); Aspartate Amino Transferase 37 U/L (14-36); Bilirubin,Total 0.3 mg/dL (0.2-1.3); Blood Urea Nitrogen 14 mg/dL (7-17); Calcium 9.5 mg/dL (8.4-10.2); Carbon Dioxide 30 mmol/L (22-30); Chloride 101 mmol/L (98-107); Cholesterol 251 mg/dL (0-200); Estimated Glomerular Filt Rate > 60; Glucose 90 mg/dL (65-110); HDL Direct 55 mg/dL; Potassium 4.1 mmol/L (3.4-5.0); Sodium 136 mmol/L (137-145); Total Protein 7.2 g/dL (6.3-8.2); Triglycerides 142 mg/dL (<150)
[2024-09-23 20:45] LABS: LDL Cholesterol Direct 141 mg/dL
[2024-09-23 21:55] LABS: Vitamin D 25 Hydroxy 53.5 ng/mL
[2024-09-23 23:08] LABS: Hepatitis B Surface Antigen Negative (Negative)
[2024-09-23 23:13] LABS: HAV RESULT Negative (Negative); Hepatitis B Core IgM Result Negative (Negative)
[2024-09-23 23:24] LABS: Hepatitis C Virus Antibody Negative (Negative)
== END 2024-09-23 07:52 | disposition home or self-care (01) ==
PROVIDERS: PCP Family Medicine; Visit Provider Family Medicine
DX: E78.5 Hyperlipidemia, unspecified (principal); E03.9 Hypothyroidism, unspecified; R74.01 Elevation of levels of liver transaminase levels; G47.30 Sleep apnea, unspecified; Z00.00 Encounter for general adult medical examination without abnormal findings; M85.80 Other specified disorders of bone density and structure, unspecified site
CPT/HCPCS: 36415; 80053; 80061; 80074; 82306; 84443; 85025

== ENCOUNTER 2024-10-03 09:17 | Outpatient (CLI) | payer MEDICARE, SELFPAY ==
--- NOTE | ~2024-10-03 | XR_ITS ---
XR wrist LT 2V Ordering provider: Abdirahman Saucedo MD History: . M79.646 - Pain in unspecified finger(s) . Comparison: None. FINDINGS: BONES: No acute fracture or dislocation. No definite scaphoid fracture. JOINT SPACES: Narrowing of the scaphotrapezial joint. Osteoarthritic changes of the first carpometaca rpal joint. SOFT TISSUES: Normal. IMPRESSION: No acute osseous abnormality left wrist. Reviewed, dictated and finalized at location A.
--- NOTE | ~2024-10-03 | XR_ITS ---
EXAM/ PROCEDURE: XR finger 1st RT min 2V - 10/03/2024 9:25 CDT HISTORY: 69 years old Female with M79.646 - Pain in unspecified finger(s) COMPARISON: None available TECHNIQUE: Three view(s) FINDINGS/ IMPRESSION: There are no fractures or dislocations.Joint space narrowing, subchondral sclerosis, subchondral cyst formation and osteophyte formation, compatible with mild osteoarthritis. Reviewed, dictated and finalized at location A.
--- NOTE | ~2024-10-03 | XR_ITS ---
XR wrist RT 2V Ordering provider: Abdirahman Saucedo MD History: . M79.646 - Pain in unspecified finger(s) . Comparison: None. FINDINGS: BONES: No acute fracture or dislocation. No definite scaphoid fracture. JOINT SPACES: Narrowing of the scaphotrapezial joint. SOFT TISSUES: Normal. IMPRESSION: No acute osseous abnormality right wrist. Reviewed, dictated and finalized at location A.
--- NOTE | ~2024-10-03 | XR_ITS ---
EXAM/ PROCEDURE: XR finger 1st LT min 2V - 10/03/2024 9:25 CDT HISTORY: 69 years old Female with M79.646 - Pain in unspecified finger(s) COMPARISON: None available TECHNIQUE: Three view(s) FINDINGS/ IMPRESSION: There are no fractures or dislocations.Joint space narrowing, subchondral sclerosis, subchondral cyst formation and osteophyte formation, compatible with mild osteoarthritis. Reviewed, dictated and finalized at location A.
== END 2024-10-03 09:18 | disposition home or self-care (01) ==
PROVIDERS: PCP Family Medicine; Visit Provider Family Medicine
DX: M79.646 Pain in unspecified finger(s) (principal); M25.539 Pain in unspecified wrist
CPT/HCPCS: 73100; 73140

== ENCOUNTER 2024-10-23 08:28 | Outpatient (CLI) | payer MEDICARE, SELFPAY ==
--- NOTE | ~2024-10-23 | US_ITS ---
Limited Abdominal Sonogram: Real-time sonographic imaging of the right upper quadrant was performed. Clinical History: Abnormal liver enzyme levels Findings: The liver appears normal with no evidence of mass lesion or bile duct dilatation. Main por ciarra vein demonstrates normal direction of flow. The gallbladder is well distended, and appears normal with no evidence of gallstone or wall thickening. The common bile duct measures 4 mm. The visualize d pancreas, aorta, and IVC are unremarkable. Impression: No significant abnormality seen. Reviewed, dictated and finalized at location M. Impression: No significant abnormality seen.
== END 2024-10-23 08:29 | disposition home or self-care (01) ==
LOC: MICIMG 08:28
PROVIDERS: PCP Family Medicine; Visit Provider Family Medicine
DX: R74.01 Elevation of levels of liver transaminase levels (principal)
CPT/HCPCS: 76705

== ENCOUNTER 2024-11-26 08:51 | Outpatient (CLI) | payer MEDICARE, SELFPAY ==
--- NOTE | ~2024-11-26 | DEXA_ITS ---
Bone Density Report Name: TOD STEWART Age: 69 Sex: Female Ethnicity: White Date of : 1955 Indication: postmenopausal; screening for osteoporosis; parental hip fracture; prior fracture; Referring Provider: KEIRY MARQUEZ Study: Bone densitometry was performed. Exam Date: November 26, 2024 Accession number: [id number] Bone Density: Region BMD T-score Z-score Classification AP Spine(L1-L4) 0.863 -1.7 0.5 Osteopenia Femoral Neck (Left) 0.710 -1.3 0.6 Osteopenia Total Hip (Left) 0.852 -0.7 0.8 Normal Femoral Neck (Right) 0.750 -0.9 0.9 Normal Total Hip (Right) 0.875 -0.6 1.0 Normal Total Hip Mean 0.863 -0.7 0.9 Normal World Health Organization criteria for BMD impression classify patients as: Normal (T-score at or above -1.0), Osteopenia (T-score between -1.0 and -2.5), or Osteoporosis (T-score at or below -2.5). 10-year Fracture Risk(1): Major Osteoporotic Fracture 21% Hip Fracture 3.6% Reported Risk Factors: [place] (), Neck BMD=0.710, BMI=32.8, previous fracture, parental fracture (1) FRAX(R) Version 3.08. Fracture probability calculated for an untreated patient. Fracture probability may be lower if the patient has received treatment. Clinical Information Provided by Patient: Has had a low trauma fracture Parent has had a hip fracture Has used the following medications: Fosamax (i.e. alendronate), Vitamin D, Calcium Patient maximum height was 61 Menopause Age: 44 Drinks caffeinated beverages Onset of menses at age 10 Number of children 1 Impression: The patient has low bone mass, based on the Total Spine T-score. The patient has an estimated ten-year risk of hip fracture of 3.6% and an estimated ten-year risk of major fracture of 21%, based on the WHO FRAX algorithm. The patient has risk factors, including: parental hip fracture, previous fracture. Discussion: BONE DENSITY IS LOW AT ONE OR MORE SKELETAL SITES. THE PATIENT'S BMD AND CLINICAL RISK FACTORS CONTRIBUTE TO THIS PATIENT'S HIGH RISK OF FRACTURE. This patient's lowest T-score is low at one or more skeletal sites. It meets the World Health Organization's (WHO) criteria for ?low bone mass? (T-score between -1.0 and -2.5). The patient's 10-year risk of hip fracture and 10 year risk of a major osteoporotic fracture as calculated by FRAX exceeds the threshold where pharmacological therapy is recommended by the National Osteoporosis Foundation (NOF). However, all treatment decisions require clinical judgment and consideration of individual patient factors, including patient preferences, comorbidities, previous drug use, risk factors not captured in the FRAX model (e.g., frailty, falls, vitamin D deficiency, increased bone turnover, interval significant decline in bone density) and possible under or overestimation of fracture risk by FRAX. The patient should follow a healthful lifestyle (good nutrition with adequate calcium and vitamin D, and appropriate weight-bearing exercise). Follow-Up: Consider a repeat BMD and Vertebral Fracture Assessment (VFA) exam in 2 years or sooner if medically necessary, to reassess this patient's status. Reported by: GONZALEZ on 11/26/2024 9:52:00 AM. Reviewed, dictated and finalized at location A.
== END 2024-11-26 08:52 | disposition home or self-care (01) ==
LOC: MICIMG 08:52
PROVIDERS: PCP Family Medicine; Visit Provider Family Medicine
DX: Z78.0 Asymptomatic menopausal state (principal); M85.88 Other specified disorders of bone density and structure, other site; M85.852 Other specified disorders of bone density and structure, left thigh
CPT/HCPCS: 77080

== ENCOUNTER 2024-11-27 11:23 | Outpatient (CLI) | payer MEDICARE, SELFPAY ==
--- OUTSIDE RECORDS SUMMARY | 2024-11-27 12:00 | XMS_ITS | Clinical Summary ---
Author Organization [facility] Address [address] [place] [address] Care Team Providers Care Law Office Receptionist Name Role Phone Chacorta Nelson MD Primary Care Provider [phone] Source Comments [facility],non-owned Affiliates and Associated Physician Practices is amultiple site organization consisting of ambulatory clinics and hospital sitesin [place], [place], [place] and [place]. This disclosure is being madepursuant to the Care Everywhere program and may not contain all information available regarding this patient. Last updated 17.[facility] Allergies Active Allergy Reactions Criticality Noted Date Comments Sulfa Drugs 10/13/2011 RASH Medications * Be aware that medications may not be up to date on this document. Alwaysverify current medications with the patient. milnacipran (SAVELLA) 50 MG tablet Take 50 mg by mouth 2 times daily. Active vitamin D, ergocalciferol, (DRISDOL) 52777 UNITS capsule Take 50,000 Units by mouth. [...] 6 hours as needed for Pain. 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 Gender Identity Not on file Sexual Orientation [...] MEDICARE AWV CALENDAR YEAR 2024 INFLUENZA VACCINE (#1) 2024 9, 01/08/2018, 01/18/2017, Additional history exists LIPID TESTING [...] complete this topic Insurance A[employer] MEDICARE ADV [facility] Care Address: [facility] [id number] [place] [phone] Advance Directives Documents on File Type Date Recorded Patient Calciminer Expl anation Adv Directive/Living Will/POA 10/22/2011 9:13 AM * FULL RESUSCITATION (Latest Code Status on File) Date Activated Date Inactivated Comments 10/19/2011 6:55 AM 10/19/2011 1:08 PM Care Teams Law Office Receptionist Relationship Specialty Start Date End Date Chacorta Nelson MD [address] [place] [address] PCP - General Internal Medicine 08/07/23
--- OUTSIDE RECORDS SUMMARY | 2024-11-27 12:00 | XMS_ITS | Encounter Summary ---
Author Organization [facility] Address [address] [place], [place] [address] [address] Care Team Providers Care Finishing Frame Runner Name Role Phone Chacorta Nelson MD Primary Care Provider [phone] Encounter Details Date Type Department Care Team (Late st Contact Info) Description 07/19/2023 Lab Requisition [facility] - DermPath Lab [address] [facility] [place] [address] Adelita Russell MD [address] [facility] [address] [place] [address] Social History Tobacco Use Types Packs/Day Years Used Date Smoking Tobacco: Never Alcohol Use Standard Drinks/Week Comments No 0 (1 standard drink = 0.6 oz pur e alcohol) Comments No Sex and Gender Information Value Date Recorded Sex Assigned at Not on file 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 Gender Identity Not on file Sexual Orientation Not on file documented as of this encounter Plan of Treatment Not on file documented as of this encounter Procedures Procedure Name Priority Date/Time Associated Diagnosis Comments DERMATOPATHOLOGY Routine 07/19/2023 9:53 AM CDT documented in this encounter Results * DERMATOPATHOLOGY (07/19/2023 9:53 AM CDT) Case Report Dermatopathology Report Case: [id number] Authorizing Provider: Adelita Russell MD Collected: 07/19/2023 09:53 AM Ordering Location: [facility] - Received: 07/20/2023 09:03 AM [...] characteristic determined by the Dermatopathology Laboratory at [facility], directed by Dr. Debbie Man. These tests need not be, and therefore are not, approved by the [place] Food and Drug Administration. The tests are used for clinical purposes. Billing Codes Specimen Charges Stain Charges 01277 1 12:52 PM CDT DERMATOPATHOLOGY LABORATORY Embedded Images 12:52 PM CDT DERMATOPATHOLOGY LABORATORY Pathology/Cytolo gy TISSUE SPECIMEN FROM SKIN / Unknown 07/19/2023 9:53 AM CDT 07/20/2023 9:03 AM CDT Adelita Russell MD LAB - PATHOLOGY/CYTOLOGY OR DERABLES Final Result DERMATOPATHOLOGY LABORATORY [facility] - Department of Dermatology [facility] [address] [place] [address], [address] [phone] documented in this encounter Visit Diagnoses Not on filedocumented in this encounter Care Teams Finishing Frame Runner Relationship Specialty Start Date End Date Chacorta Nelson MD [address] [place] [address] PCP - General Internal Medicine 08/07/23 documented as of this encounter
--- OUTSIDE RECORDS SUMMARY | 2024-11-27 12:00 | XMS_ITS | Clinical Summary ---
Author Organization [facility] Address [address] [place] [address] Care Team Providers Care Electrical Contacts Adjuster Name Role Phone DameonKassandra riosJackie PA Unavailable [phone] Abdirahman Saucedo MD Primary Care Provider [phone] Allergies Active Allergy Reactions Criticality Noted Date [...] UNABLE TO FIND every evening Med Name: [place] Eye Lubricant Active tnjgkjhh-blc-BQ -lut-zeaxanth 500-5-1 mcg-mg-mg tablet Take by mouth Active UNABLE TO FIND 4 (four) times a day Med Name: Macular Shield Active UNABLE TO FIND daily Med Name: [place] Shield Active ascorbic acid (VITAMIN C) 500 [...] Type Department Care Team Description 09/20/2024 Telephone [facility] [address] [place] [address] Sobia Loomis MA from Last 3 Months Immunizations Immunization [...] Medical History Date Comments 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 Hx Other Medical 2007 Vitamin D defic iency Hx Other Medical Osteopenia Hx Other Medical KATHERINE Hx Other Medical 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 Hx Other Medical 10/19/2011 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 traci Hx Other Medical 08/20/2012 D&C [...] on file 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 Gender Identity Not on file Sexual Orientation [...] Screening-Colonoscopy 10/29/2024 10/29/2014, 10/29/2014, 10/29/2014 Influenza Vaccine (#1) 2024 9, 01/08/2018, 01/18/2017, Additional history exists Colon Cancer Screening-CT Colonography Discontinued 10/29/2014, 10/29/2014, 10/29/2014 Colon Cancer Screening-DNA Stool Discontinued 10/29/2014, 10/29/2014, 10/29/2014 Colon Cancer Screening-FIT Discontinued 10/29, 10/29/2014, 10/29/2014 Colon Cancer Screening-Sigmoidoscopy Discontinued 10/29/2014, 10/29/2014, 10/29/2014 Hepatitis C Screening Completed 07/28/2016 Medical Devices Implanted Type Area Security Intern Device Identifier Shelf Expiration Date Model / Serial / Lot Depuy Orthopa[employer] Inc Attune Fb Tib Base Sz 3 Por [id number] - [id number] Implanted:Qty: 1 on 10/11/2023 by Kevon Osorio MD at [facility] Left: Knee Depuy [employer] Inc 09/07/2032 [id number] / / Depuy [employer] Attune Cruciate Retain Cementless Knee Left 4 Component Femoral [id number] - [id number] Implanted:Qty: 1 on 10/11/2023 by Kevon Osorio MD at [facility] Left: Knee Depuy [employer] Inc 10/07/2032 [id number] / / Depuy [employer] Insert Tibial Knee Fixed Lm Posterior Stabilized Attune 7mm Size 4 Polyethylene [id number] - [id number] Implanted:Qty: 1 on 10/11/2023 by Kevon Osorio MD at [facility] Left: Knee [employer]uy [employer] 04/09/2030 [id number] / / Procedures Procedure Name Priority Date/Time Associated Diagnosis Comments HM MAMMOGRAPHY Routine 12/05/2016 DEXA AXIAL SKELETON BONE DENSITY 1 OR MORE SITES Schedule Routine, Read Routine (OP Routine) 10/31/2016 9:21 AM CDT Osteopenia HEPATITIS C SCREENING Routine 07/28/2016 COLONOSCOPY IMAGES 10/29/2014 from Last 3 Months or Most Recently Relevant to Health Maintenance Results * MAMMOGRAPHY (12/05/2016) Mammogram Unknown Historical Provider [facility] Final Result * Dexa Axial Skeleton Bone Density 1 or 2 Site (10/31/2016 9:21 AM CDT) Pathologist [facility] SCRIBED DXA T-SCORE -1.7 IMAGING SCRIBED DXA Z-SCORE -0.6 IMAGING SCRIBED DXA BMD 0.973 IMAGING Anatomical Region Laterality Modality Body N/A Digital Radiogra phy Chacorta Nelson MD IMG DXA PROCEDURES Edite d Result - Final * HEPATITIS C SCREENING (07/28/2016) HEP C Normal Comment:Negative Historical Provider [facility] Final Result * COLONOSCOPY IMAGES (10/29/2014) Anatomical Region Laterality Modality Other Narrative 10/29/2014 Ordered by an unspecified provider. Result [facility] Historical Nell BAKER GI PROCEDURE ORDERABLES F inal Result from Last 3 Months or Most Recently Relevant to Health Maintenance Insurance [facility] MEDICARE [employer] [facility] MEDICARE [facility] Address: [address] [address] [place] [address] [facility] MEDICARE ADVANTAGE [facility] Address: [address] [place] [address] [employer] MEDICARE Advance Directives For more information, please contact: [phone] Documents on File Type Date Recorded Patient Tomb Maker Helper Expl anation Power of Sr Account Executive 10/11/2023 8:19 AM * Full Code (Latest Code Status on File) Date Activated Date Inactivated Comments 10/11/2023 12:46 PM 10/12/2023 5:08 PM Care Teams Electrical Contacts Adjuster Relationship Specialty Start Date End Date Abdirahman Saucedo MD [address] [place] [address] [address] [place] [address] PCP - General Family Practice 01/25/24 Kassandra Xiao PA [address] [place] [address] [address] [place] [address] Physician Polymerization Engineer Orthopedic Surgery 10/12/23
--- NOTE | 2024-12-18 09:59 | WPDSLEEPSTUD ---
Sleep Study Date of Study: 11/27/24 Ordering Provider: Abdirahman Saucedo MD Interpreting Physician: Sandra Suero MD Sleep Study Type: Polysomnogram Height: 1.55 m Weight: 76.657 kg Body Mass Index: 31.9 Neck Circumference (inches): 15 [place]: 6 PMFSH Past Medical History Medical History Colon cancer screening Overweight (BMI 25.0-29.9) Hypothyroidism Sleep apnea Hearing loss Osteopenia Surgical History Surgical History History of knee replacement Family History Family History Father Hypertension Cerebrovascular accident Sibling Hypertension Social History Social History Smoking status: Never smoker Second hand tobacco smoke exposure: Yes Alcohol intake: current Drinks per week: 1 Substance use: never Substance use type: does not use Living arrangements: with family Occupation/Education: retired Gender identity (if verbalized by the patient): Female Sexual Orientation (if Verbalized by the Patient): Straight or Heterosexual Spiritual care concerns: No Medications Home Medications ?Medication ?Instructions ?Recorded ?Confirmed ?Type [place] Shield 1 tab-cap PO DAILY 11/21/23 01/23/24 History biotin 5,000 mcg chewable tablet 5,000 mcg PO DAILY 11/21/23 01/23/24 History calcium carbonate (Calcium 500) 1,200 mg PO DAILY 11/21/23 01/23/24 History estradiol 10 mcg vaginal tablet 10 mcg vaginal 2XW 11/21/23 01/23/24 History cyclobenzaprine 5 mg tablet 5 mg PO PRN 11/22/23 01/23/24 History cholecalciferol (vitamin D3) 1,250 1,250 mcg PO .every 2 weeks #14 02/15/24 02/15/24 Rx mcg (50,000 unit) capsule caps levothyroxine 50 mcg tablet 50 mcg PO DAILY #90 tabs 09/19/24 Rx prazosin 1 mg capsule 1 mg PO QHS #90 caps 12/23/24 Rx rosuvastatin 5 mg tablet See Rx Instructions .Route 12/26/24 Rx .COMPLEX #90 tabs
[2024-12-18 10:00] VITALS: BMI 31.9
--- NOTE | 2024-12-26 13:56 | WPDSLEEPSTUD ---
Sleep Study Date of Study: 11/27/24 Ordering Provider: Abdirahman Saucedo MD Interpreting Physician: Yoly Arrieta DO Sleep Study Type: Polysomnogram Height: 1.55 m Weight: 76.657 kg Body Mass Index: 31.9 Neck Circumference (inches): 15 Clarence: 6 Reason for Sleep Study Previously diagnosed sleep apnea, currently on CPAP. Persistent violent nightmares. Sleep History The patient is a 69-year-old female with previously diagnosed sleep apnea on CPAP that had a sleep study ordered by her primary care physician for nightmares. The patient denies awakening from sleep short of breath. She frequently snores and is frequently loud enough that others complain. She constantly has trouble sleeping when she has a cold. She frequently wakes up gasping for air throughout the night. She constantly has breathing problems at night observed by herself or others. She denies sweating excessively at night. She frequently has heart palpitations or irregular heartbeats after her nightmares. She rarely falls asleep during the day and never while driving. She denies sleep paralysis and cataplexy. She constantly experiences vivid dreamlike scenes upon awakening or falling asleep. She occasionally feels afraid of going to sleep. She constantly has nightmares. She constantly remembers her dreams. She constantly has thoughts racing through her mind. She occasionally feels sad, depressed and anxious. She rarely has muscular tension. She rarely notices parts of her body jerk. She rarely kicks during the night. She rarely has crawling and aching feelings in her legs and denies having leg pain during the night. She denies grinding her teeth during sleep and denies awakening with morning jaw pain. He is occasionally bothered by pain during the day and occasionally awakened by pain during the night. She occasionally wakes up feeling stiff in the morning. She occasionally wakes up with sore or achy muscles. She denies waking up with pain in the neck, spine or other joints. She goes to bed at 10:00 p.m. every night. The amount of time it takes for her to fall asleep is variable. She wakes up 3 times throughout the night to urinate is able to fall back asleep within 10 minutes. She wakes up at 7:00 a.m. every morning. She typically gets 8 hours of sleep per night. She will stay in bed for 5 minutes after waking up in the morning. She currently lives with her . She denies consuming any caffeinated beverages within 2 hours of bedtime. She denies reading before falling asleep. She will occasionally watch television before falling asleep. She denies taking naps in afternoon or the evening. She consumes 1 caffeinated beverage 3 times per week. She denies tobacco, alcohol and recreational drug use. COUNT INCLUDES THE [facility] Past Medical History Medical History Colon cancer screening Overweight (BMI 25.0-29.9) Hypothyroidism Sleep apnea Hearing loss Osteopenia Surgical History Surgical History History of knee replacement Family History Family History Father Hypertension Cerebrovascular accident Sibling Hypertension Social History Social History Smoking status: Never smoker Second hand tobacco smoke exposure: Yes Alcohol intake: current Drinks per week: 1 Substance use: never Substance use type: does not use Living arrangements: with family Occupation/Education: retired Gender identity (if verbalized by the patient): Female Sexual Orientation (if Verbalized by the Patient): Straight or Heterosexual Spiritual care concerns: No Medications Home Medications ?Medication ?Instructions ?Recorded ?Confirmed ?Type Lee Shield 1 tab-cap PO DAILY 11/21/23 01/23/24 History biotin 5,000 mcg chewable tablet 5,000 mcg PO DAILY 11/21/23 01/23/24 History calcium carbonate (Calcium 500) 1,200 mg PO DAILY 11/21/23 01/23/24 History estradiol 10 mcg vaginal tablet 10 mcg vaginal 2XW 11/21/23 01/23/24 History cyclobenzaprine 5 mg tablet 5 mg PO PRN 11/22/23 01/23/24 History cholecalciferol (vitamin D3) 1,250 1,250 mcg PO .every 2 weeks #14 02/15/24 02/15/24 Rx mcg (50,000 unit) capsule caps levothyroxine 50 mcg tablet 50 mcg PO DAILY #90 tabs 09/19/24 Rx prazosin 1 mg capsule 1 mg PO QHS #90 caps 12/23/24 Rx rosuvastatin 5 mg tablet See Rx Instructions .Route 12/26/24 Rx .COMPLEX #90 tabs Sleep Procedure A full night polysomnogram using the [employer]lyte [employer] multi-channel system recorded the standard physiologic parameters including EEG, EOG, submentalis EMG, anterior tibialis EMG, EKG, body position, nasal and oral airflow using nasal pressure sensor and thermistor.? Respiratory parameters of chest and abdominal movements were recorded with Respiratory Inductance Plethysmography belts. Oxygen saturation was recorded by pulse oximetry. Video monitoring was also performed. Sleep stages, periodic limb movements, and EEG arousals were scored in 30 second epochs according to the criteria of the AASM Scoring Manual. The Apnea-Hypopnea Index was calculated using [facility] guidelines for definition of hypopnea with 4% O2 desaturations while scoring respiratory events. Sleep Architecture The total recording time was 457.4 minutes.? The total sleep time was 352.5 minutes. Sleep latency was 28.1 minutes. REM latency was 278.0 minutes. Sleep efficiency was 77.1%. The patient had 52 awakenings for an awakening index of 8.9. Wake after sleep onset time was 76.5 minutes. The patient spent 68.5 minutes, 19.4% of total sleep time in Stage N1. The patient spent 241.0 minutes, 68.4% in Stage N2. The patient spent 29.5 minutes, 8.4% in Stage N3. The patient spent 13.5 minutes, 3.8% in Stage REM sleep. Respiratory Analysis The patient had 68 hypopneas, 104 obstructive apneas, 4 mixed apneas, and 32 central apneas for an overall Apnea Hypopnea Index of 35.4. The REM Apnea Hypopnea Index was 17.8. The NREM Apnea Hypopnea Index was 36.3. The patient had a Central Apnea Hypopnea Index of 5.4. There were 7 Respiratory Effort Related Arousals resulting in a RERA index of 1.2 events per hour. The Respiratory Disturbance Index is 45.4 events per hour. There was no evidence of Alfredo-Cerrato Respirations. Arousals There were 318 total arousals for an arousal index of 54.1. There were 99 spontaneous arousals for an index of 16.9. There were 149 arousals due to respiratory events for an index of 25.4. There were 23 arousals due to periodic limb movements for an index of 3.9.? There were 37 arousals due to isolated limb movements for an index of 6.3. Periodic Limb Movements The patient had 47 isolated limb movements with an index of 8.0. The patient had 30 periodic limb movements with an index of 5.1. Patient had a total of 77 limb movements with a total limb movement index of 13.1. Oximetry Data The patient had an average oxygen saturation of 94.6% in sleep with a minimum oxygen saturation of 85.0% and a maximum oxygen saturation of 99.0%. The patient had 165 oxygen desaturations that were 4% or greater resulting in an Oxygen Desaturation Index of 28.1.? The patient spent 4.1 minutes, 0.9% of total sleep time with an oxygen saturation below 88%. Snoring Profile Mild to moderate snoring was present throughout the study. Cardiac Profile The EKG showed normal sinus rhythm with rare PVCs.?The patient had an average pulse rate of 58.2 bpm with a minimum pulse of rate of 48.0 bpm and a maximum pulse rate of 83.0 bpm.? EEG Profile No signs of seizure activity seen. Assessment and Plan Assessment and Plan (1) KATHERINE (obstructive sleep apnea): Code(s): G47.33 - Obstructive sleep apnea (adult) (pediatric) Status: Acute Assessment and Plan: The patient had an overall AHI of 35.4 with desaturation down to 85%. This is consistent with severe sleep apnea. The patient is not interested in CPAP therapy and would prefer Inspire. I recommend that the patient be referred to Dr. Marquis Marcus at [facility] for further evaluation regarding the Inspire procedure. The patient had a central apnea index of 5.4, which is elevated (normal <5). I recommend that the patient have an echocardiogram to rule out cardiogenic causes for an elevated central apnea index. Data The data obtained during this sleep study is adequate for interpretation. Certification This sleep study has been reviewed by a board certified sleep medicine physician.
[2024-12-26 13:57] VITALS: BMI 31.9
== END 2024-11-28 07:22 | disposition home or self-care (01) ==
PROVIDERS: PCP Family Medicine; Visit Provider Family Medicine
DX: G47.30 Sleep apnea, unspecified (principal); G47.33 Obstructive sleep apnea (adult) (pediatric)
CPT/HCPCS: 95810

== ENCOUNTER 2025-01-13 13:58 | Outpatient (CLI) | payer MEDICARE, SELFPAY ==
--- OUTSIDE RECORDS SUMMARY | 2011-12-13 08:30 | XMS_ITS | Continuity of Care Document ---
[facility] [place] [address] [facility] [address] [place] [address] Phone Care Team Providers Care Diesel Engine Inspector Name Role Phone Josué BAKER, Octavio Unavailable Unavailable Allergies, Adverse Reactions, Alerts Substance Reaction Status Criticality Sulfa (Sulfonamide Antibiotics) Active No Information Medications Medication Instructions Dosage Effective Dates (start - stop) Status Comments Fosamax 70 mg Tab take 1 tablet (70MG) by ORAL route every week in the morning, at least 30 minutes before the first food, beverage, or medication of the day 70 MG - Active Vitamin D 50,000 unit Cap take 1 capsule ([id number]) by ORAL route every week - Active Savella 50 mg Tab take 2 tablet (100MG ) by ORAL route 2 times every day 100 MG - Active Amitriptyline 10 mg Tab take 1 tablet (1 0MG) by ORAL route 3 times every day 10 MG - Active Estradiol 2 mg Tab take 1 tablet (2MG) by ORAL route every day 2 MG - Active Procedures Procedure Date Eye Exam & Treatment Eye Exam & Treatment Eye Exam & Treatment Refraction Fundus Photography W/ Report Advance Directives Directive Yes / No Effective Date File Name Resuscitation Not Answered N/A N/A Life Support Not Answered N/A N/A Intubation Not Answered N/A N/A Antibiotics Not Answered N/A N/A IV Fluid Support Not Answered N/A N/A Tube Feed Not Answered N/A N/A Other Directive N/A N/A WARNING:The information contained in this section is historical and is provided for information only and does not constitute a legal document or any assurance that the information is still accurate. Please verify the information with the tadeo of the legal document before using it for clinical purposes. Encounters Encounter Description Practice Location Reason(s) For Visit Diagnoses Date Provider Providers Copied on Encounter 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 [address], [facility] [place], [id number], [place]. tel:[phone] [facility], [address] [place] [address] [address], [place], [place], [id number], tel:[phone] SEC Werner [place] Professional No Information Aug-2 3-201 2 Wankum Octavio. [address], [facility] [place], [place], [id number], [place]. tel:[phone] [facility], [id number] [place] [address] [address], [place], [place], [id number], [place] tel:[phone] SEC [place] Professional No Information Aug-1 3-201 0 Wankum Octavio. [address], [facility] [place], [id number], [place]. tel:[phone] [facility], [address] [place] [address] [address], [place], [place], [id number], [place] tel:[phone] SEC [place] Professional No Information Aug-0 7-200 8 Wankum Octavio. [address], [facility] [place], [place], [id number], [place]. tel:[phone] Referring Provider: Octavio Brennan, [address] [place], [address] . tel:[phone] Family History Family Member Type Diagnosis Age At Onset No Information Payers Payer name Insurance type Covered constitution party ID Authoriza tion(s) No Information Social History Type Description Quantity Date Captured Comments Alcohol Use Details No Caffeine Use Details No Tobacco Use Status No Information Smoking Status No Information Sex Female Chief Complaint And Reason For Visit No Information Reason For Referral Reason For Referral No Information History Of Present Illness Encounter Date Complaint History Of Prese nt Illness No Information Functional Status Date Functional Assessmen t No Information Instructions Date Instruction Additional Infor mation - 1 year complete Related to Dry Eye Syndrome Dry Eye Syndrome, OU - established, stable - vision not affected - will continue to monitor - Discussed dx with pt. Pt not using gtts at this time, understands she can use ATs as needed. Discussed reading glasses with pt. Will monitor. Related to Dry Eye Syndrome Assessments Type Assessment Date No Information Patient Care Teams Name Effective Dates (start - stop) Status Members No Information
--- OUTSIDE RECORDS SUMMARY | 2025-01-08 05:00 | XMS_ITS | Continuity of Care Document ---
Author Organization [facility] Address [id number] [place] [address] [address] [place] [address] Phone Care Team Providers Care Integrated Logistics Support Manager Name Role Phone JakeRandy bernardo OD Unavailable Unavailable Allergies, Adverse Reactions, Alerts Substance Reaction Status Criticality sulfabenzamide Unknown Active No Informatio n Medications Medication Instructions Dosage Effective Dates (start - stop) Status Comments HypoChlor OPHTHALMIC SPRAY BID OU - Active Restasis 0.05 % eye drops in a dropperette BID OU - Active Zyrtec 10 mg tablet take 1 tablet by oral route every day 10 MG - Active oasis tears OPHTHALMIC DROPS BID OU - Active omega-3 acid ethyl esters 1 gram capsule take 2 capsule by oral route 2 times every day 2 G - Active macular shield multivitamin ORAL TABLET Take two capsules by mouth twice per day - Active clobetasol 0.05 % topical cream as needed - Active estradiol 10 mcg vaginal tablet as needed - Active rosuvastatin 5 mg tablet TAKE 1 TABLET BY MOUTH EVERY DAY - Active prazosin 1 mg capsule TAKE 1 CAPSULE BY MOUTH EVERY DAY AT BEDTIME - Active levothyroxine 50 mcg tablet TAKE 1 TABLET BY MOUTH EVERY DAY - Active cholecalciferol (vitamin D3) 1,250 mcg (50,000 unit) capsule TAKE 1 CAPSULE BY MOUTH EVERY 2 WEEKS - Active prednisone 20 mg tablet 40 MG (2 X 20 MG) ORALLY DAILY - Active clindamycin HCl 300 mg capsule TAKE 2 CAPSULES BY MOUTH DAILY. - Active cyclobenzaprine 5 mg tablet TAKE 1-2 TABLETS BY MOUTH 3 TIMES A DAY NEEDED FOR MUSCLE SPASMS. - Active clobetasol 0.05 % topical cream - No Longer Active triamcinolone acetonide 0.1 % topical cream APPLY TO ITCHY AREA OF BACK DAILY NEEDED - No Longer Active gabapentin 300 mg capsule - No Longer Active Procedures Procedure Date FUNDUS PHOTOGRAPHY EYE EXAM & TREATMENT [place] Tears Plus Bottle [place] Plus Macular Shield W/Vitamins Macular Shield W/Vitamins [place] Hypochlorous [place] Plus Macular Shield W/Vitamins Results Test Name Date and Time Measure Units Reference Range Abnormal Flag Status Commen ts Panel Description: [id number] Final Image Zeiss Result 1 Panel Description: [id number] Final Image Zeiss Result 2 Advance Directives Directive Yes / No Effective Date File Name No Information Encounters Encounter Description Practice Location Reason(s) For Visit Diagnoses Date Provider Providers Copied on Encounter [facility], [address], [id number], [place] tel:[phone] [facility] Dry eyes (chief complaint) Drusen of macula of both eyesKeratoconj unctivitis sicca, not specified as Sjogren's, bilateralSquam ous blepharitis right eye, upper and lower eyelidsSquamou s blepharitis left eye, upper and lower eyelidsCombine d forms of age-related cataract, bilateralPVD (posterior vitreous detachment), both eyes Jan-0 Nelson Padilla. [address] [facility], [address], [place], [place], [id number], [place]. tel:[phone] Referring Provider: Randy Owen, [address] [place] [address] [address], [place], [address]. tel:[phone] [facility], [address] [place] [address] [address], [place], [place], [id number], [place] tel:[phone] [facility] No Information Sep-3 5 Brayden Padilla. [address] [facility], [address], [place], [place], [id number], [place]. tel:[phone] [facility], [address] [place] [address], [place], [place], [id number], [place] tel:[phone] [facility] Drusen of macula of both eyesKeratoconj unctivitis sicca, not specified as Sjogren's, bilateral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, bilateralSquam ous blepharitis right eye, upper and lower eyelidsSquamou s blepharitis left eye, upper and lower eyelidsPVD (posterior vitreous detachment), both eyes Sep-2 5 Brayden Padilla. [address] [place] [address], [address], [place], [place], [id number], [place]. tel:[phone] Referring Provider: Randy Owen, [address] [place] [address] [address], [place], [address]. tel:[phone] [facility], [address] [place] [address] [address], [place], [place], [id number], [place] tel:[phone] [facility] No Information Sep-0 5 Brayden Padilla. [address] [place] [address], [address], [place], [place], [id number], [place]. tel:[phone] Referring Provider: Randy Owen, [address] [place] [address] [address], [place], [address]. tel:[phone] [facility], [address] [place] [address] [address], [place], [place], [id number], [place] tel:[phone] [facility] No Information Talib- 5 Brayden Padilla. [facility], [address], [place], [id number], . tel:[phone] Referring Provider: Randy Owen, [address] [facility] [address], [place], [address]. tel:[phone] Family History Family Member Type Diagnosis Age At Onset No Information Payers Payer name Insurance type Covered constitution party ID Authorgabby odonnell(s) Halley Sommers PPO CI [id number] Social History Type Description Quantity Date Captured Comments Alcohol Use Details Unknown Caffeine Use Details Unknown Tobacco Use Status No Information Smoking Status No Information Sex Female Chief Complaint And Reason For Visit From encounter dated '01/08/2025 10:00'. Dry eyes (chief complaint). Description: The 69 year old patient presents for evaluation of Dry eyes in the right eye and left eye. It affects [place] not affected. The condition is stable. Patient denies: any drop problems and is using drops correctly.Pt states she has no concerns or changes, feels like her eyes are well managed with treatment regimen Reason For Referral Reason For Referral No Information Plan Of Treatment Date Type Action Status Appointment Jyoti Stapleton BOOKED History Of Present Illness Encounter Date Complaint History Of Prese nt Illness Dry eyes The 69 year old patient presents for evaluation of Dry eyes in the right eye and left eye. It affects VA not affected. The condition is stable. Patient denies: any drop problems and is using drops correctly.Pt states she has no concerns or changes, feels like her eyes are well managed with treatment regimen Functional Status Date Functional Assessmen t No Information Instructions Date Instruction Additional Infor mation Impression/Plan Related to Squam ous blepharitis left eye, upper and lower eyelids Impression/Plan Related to Druse n of macula of both eyes Impression/Plan Related to Kerat oconjunctivitis sicca, not specified as Sjogren's, bilateral Impression/Plan Related to Squam ous blepharitis right eye, upper and lower eyelids Impression/Plan Related to 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, bilateral Impression/Plan Related to PVD ( posterior vitreous detachment), both eyes Impression/Plan Related to Druse n of macula of both eyes Impression/Plan Related to Kerat oconjunctivitis sicca, not specified as Sjogren's, bilateral Impression/Plan Related to Squam ous blepharitis right eye, upper and lower eyelids Impression/Plan Related to Squam ous blepharitis left eye, upper and lower eyelids Impression/Plan Related to 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 assessment Keratoconjunctivitis sicca, not specified as Sjogren's, bilateral impression Keratoconjunctivitis sicca, not specified as Sjogren's, bilateral: H16.223. assessment Squamous blepharitis right eye, upper and lower eyelids impression Squamous blepharitis right eye, upper and lower eyelids: H01.02A. assessment Squamous blepharitis left eye, u pper and lower eyelids impression Squamous blepharitis left eye, upper and lower eyelids: H01.02B. assessment Combined forms of age-related ca taract, bilateral impression Combined forms of age-related ca taract, bilateral: H25.813. assessment PVD (posterior vitreous detachme nt), both eyes impression PVD (posterior vitre ous detachment), both eyes: H43.813. Condition: stable. Patient Care Teams Name Effective Dates (start - stop) Status Members No Information
--- NOTE | ~2025-01-13 | MM_ITS ---
EXAMINATION: MM screening miles BI w cirilo HISTORY: Screening TECHNIQUE: Craniocaudal and mediolateral oblique 3-D tomosynthesis images were obtained and synthetic 2-D images were generated. CAD analysis was submitted and interpreted. COMPARISON: Comparison to multiple prior studies sequentially, with oldest reviewed study dated , 12/11/2018 BREAST PARENCHYMAL COMPOSITION: The breasts are almost entirely fatty. FINDINGS: There is no evidence of suspicious mass, calcification, or architectural distortion to suggest malignancy in either breast. IMPRESSION: 1. No mammographic evidence of malignancy. 2. Recommend routine screening mammography in one year. BI-RADS Category 1: Negative Reviewed, dictated and finalized at location B.
--- OUTSIDE RECORDS SUMMARY | 2025-01-13 14:51 | XMS_ITS | Clinical Summary ---
Author Organization [facility] Address [address] [place] [address] Care Team Providers Care C Programmer Name Role Phone DameonKassandra riosJackie PA Unavailable [phone] Abdirahman Saucedo MD Primary Care Provider [phone] Allergies Active Allergy Reactions Criticality Noted Date [...] UNABLE TO FIND every evening Med Name: [place] Eye Lubricant Active oaybolzj-plp-PN -lut-zeaxanth 500-5-1 mcg-mg-mg tablet Take by mouth Active UNABLE TO FIND 4 (four) times a day Med Name: Macular Shield Active UNABLE TO FIND daily Med Name: [place] Shield Active ascorbic acid (VITAMIN C) 500 [...] Medical History Date Comments 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 Hx Other Medical 2008 Vitamin D defic iency Hx Other Medical Osteopenia Hx Other Medical KATHERINE 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 Hx Other Medical 10/19/2011 Partner Marketing Intern vestibulect traci Hx Other Medical 08/20/2012 D&C [...] on file 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 Gender Identity Not on file Sexual Orientation [...] Completed 07/28/2016 Medical Devices Implanted Type Area Electronic Engineering Technician Device Identifier Shelf Expiration Date Model / Serial / Lot Depuy [employer] Attune Fb Tib Base Sz 3 Por [id number] - [id number] Implanted:Qty: 1 on 10/11/2023 by Kevon Osorio MD at [facility] Left: Knee [employer] 09/07/2032 [id number] / / [employer] Attune Cruciate Retain Cementless Knee Left 4 Component Femoral [id number] - [id number] Implanted:Qty: 1 on 10/11/2023 by Kevon Osorio MD at [facility] Left: Knee [employer] 10/07/2032 [id number] / / [employer] Insert Tibial Knee Fixed Lm Posterior Stabilized Attune 7mm Size 4 Polyethylene [id number] - [id number] Implanted:Qty: 1 on 10/11/2023 by Kevon Osorio MD at [facility] Left: Knee [employer] 04/09/2030 [id number] / / Procedures Procedure Name Priority Date/Time [...] or 2 Site (10/31/2016 9:21 AM CDT) SCRIBED DXA T-SCORE -1.7 IMAGING SCRIBED DXA Z-SCORE -0.6 IMAGING SCRIBED DXA BMD 0.973 IMAGING Anatomical Region Laterality Modality Body N/A Digital Radiogra phy Chacorta Nelson MD IMG DXA PROCEDURES Edite d Result - Final * HEPATITIS C SCREENING (07/28/2016) HEP C Normal Comment:Negative Historical Provider HEALTH MAINTENANCE Final Result * COLONOSCOPY IMAGES (10/29/2014) Anatomical Region Laterality Modality Other Narrative 10/29/2014 Ordered by an unspecified provider. Historical Provider GI PROCEDURE ORDERABLES F inal Result from Last 3 Months or Most Recently Relevant to Health Maintenance Insurance T [facility]ICARE [facility] [place] [facility] Address: [facility] [id number] [place] [id number] AET MEDICARE [id number] [place], [place] [address]T MEDICARE Advance Directives For more information, please contact: [phone] Documents on File Type Date Recorded Patient Ux Design Manager Expl anation Power of Corrective Therapy Aide 10/11/2023 8:19 AM * Full Code (Latest Code Status on File) Date Activated Date Inactivated Comments 10/11/2023 12:46 PM 10/12/2023 5:08 PM Care Teams C Programmer Relationship Specialty Start Date End Date Abdirahman Saucedo MD [address] [place] [address] [address] [place] [address] PCP - General Family Practice 01/25/24 Kassandra Xiao PA [address] [place] [address] [address] [place] [address] Physician Substation Operator Orthopedic Surgery 10/12/23
--- OUTSIDE RECORDS SUMMARY | 2025-01-13 14:51 | XMS_ITS | Encounter Summary ---
Author Organization [facility] Address [address] [place], [place] [address] [address] Care Team Providers Care First Mate Name Role Phone Chacorta Nelson MD Primary Care Provider [phone] Encounter Details Date Type Department Care Team (Late st Contact Info) Description 07/19/2023 Lab Requisition [facility] - DermPath Lab [address] [facility], [facility] [place] [address] Adelita Russell MD [address] [facility] [address] [place] [address] Social History Tobacco Use Types Packs/Day Years Used Date Smoking Tobacco: Never Alcohol Use Standard Drinks/Week Comments No 0 (1 standard drink = 0.6 oz pur e alcohol) Comments No Sex and Gender Information Value Date Recorded Sex Assigned at Not on file 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 Gender Identity Not on file Sexual Orientation Not on file documented as of this encounter Plan of Treatment Not on file documented as of this encounter Procedures Procedure Name Priority Date/Time Associated Diagnosis Comments DERMATOPATHOLOGY Routine 07/19/2023 9:53 AM CDT documented in this encounter Results * DERMATOPATHOLOGY (07/19/2023 9:53 AM CDT) Case Report Dermatopathology Report Case: [id number] Authorizing Provider: Adelita Russell MD Collected: 07/19/2023 09:53 AM Ordering Location: [facility] - Received: 07/20/2023 09:03 AM [...] characteristic determined by the Dermatopathology Laboratory at [facility], directed by Dr. Debbie Man. These tests need not be, and therefore are not, approved by the [place] Food and Drug Administration. The tests are used for clinical purposes. Billing Codes Specimen Charges Stain Charges 54226 1 12:52 PM CDT DERMATOPATHOLOGY LABORATORY Embedded Images 12:52 PM CDT DERMATOPATHOLOGY LABORATORY Pathology/Cytolo gy TISSUE SPECIMEN FROM SKIN / Unknown 07/19/2023 9:53 AM CDT 07/20/2023 9:03 AM CDT Adelita Russell MD LAB - PATHOLOGY/CYTOLOGY OR DERABLES Final Result DERMATOPATHOLOGY LABORATORY [facility] - Department of Dermatology [facility] [address] [place] [address], [address] [phone] documented in this encounter Visit Diagnoses Not on filedocumented in this encounter Care Teams First Mate Relationship Specialty Start Date End Date Chacorta Nelson MD [address] [place] [address] PCP - General Internal Medicine 08/07/23 documented as of this encounter
--- OUTSIDE RECORDS SUMMARY | 2025-01-13 14:51 | XMS_ITS | Clinical Summary ---
Author Organization [facility] Address [address] [place] [address] Care Team Providers Care Electronic Warfare Technical Name Role Phone Chacorta Nelson MD Primary Care Provider [phone] Source Comments [facility],non-owned Affiliates and Associated Physician Practices is amultiple site organization consisting of ambulatory clinics and hospital sitesin [place], [place], [place] and [place]. This disclosure is being madepursuant to the Care Everywhere program and may not contain all information available regarding this patient. Last updated 17.[facility] Allergies Active Allergy Reactions Criticality Noted Date Comments Sulfa Drugs 10/13/2011 RASH Medications * Be aware that medications may not be up to date on this document. Alwaysverify current medications with the patient. milnacipran (SAVELLA) 50 MG tablet Take 50 mg by mouth 2 times daily. Active vitamin D, ergocalciferol, (DRISDOL) 58149 UNITS capsule Take 50,000 Units by mouth. [...] 6 hours as needed for Pain. 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 Gender Identity Not on file Sexual Orientation [...] 2004 ZOSTER VACCINE (1 of 2) 2004 DEPRESSION SCREENING 04/10/2024 MEDICARE AWV CALENDAR YEAR 2024 COVID-19 VACCINE (1 - 2023- season) 2024 INFLUENZA VACCINE (#1) 2024 9, 01/08/2018, [...] complete this topic Insurance [employer] MEDICARE ADV [facility] Care Address: [facility] [id number] [place] [phone] Advance Directives Documents on File Type Date Recorded Patient Motel Front Desk 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
== END 2025-01-13 13:59 | disposition home or self-care (01) ==
PROVIDERS: PCP Family Medicine
DX: Z12.31 Encounter for screening mammogram for malignant neoplasm of breast (principal)
CPT/HCPCS: 77063; 77067